=== PATIENT | female | born 1975 | race Caucasian/White ===

== ENCOUNTER 2022-08-02 10:03 | Emergency (ER) | payer MEDICAID ==
[~2022-08-02] VITALS: Ht 154.9 cm; Wt 59.1 kg
[~2022-08-02 10:03] MED LIST: ABILIFY20 MG PO; DULOXETINE HCL60 MG PO; HYDROXYZINE HCL50 MG PO; NICORETTE4 M1 BUCCAL; OLANZAPINE10 MG PO; PROTONIX40 MG PO; TOPAMAX100 MG PO; TOPIRAMATE100 MG PO; TRAZODONE HCL50 MG PO
--- OUTSIDE RECORDS SUMMARY | 2022-08-02 10:06 | XMS ---
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 Care History Behavioral 10/16/2017 [facility] Suicidal / PTSD / Major depression / Auditory hallucinations / Borderline Personality Disorder Medical/Surgical 10/16/2017 [facility] Epilepsy / Migraine Substance Use/Overdose 10/16/2017 [facility] Extensive history of polysubstance abuse / Patient admits to using Methamphetamine 11/25/17 Patient had been taking Suboxone (09/2017). Unknown if this is still being RX. E.D. VISIT COUNT (12 MO.) 2 [facility] [place] [facility] [place] [facility] TOTAL 12 NOTE: Visits indicate total known visits. ED/UCC VISIT TRACKING (12 MO.) 08/02/2022 10:04 [facility] [place] TYPE: Emergency COMPLAINT: - SKIN RPOBLEM 07/18/2022 14:46 [facility] [place] TYPE: Emergency COMPLAINT: - R ELBOW PAIN/NO INJ 06/02/2022 14:56 [facility] TYPE: Emergency COMPLAINT: - Abdominal Pain DIAGNOSES: - Abdominal Pain 05/09/2022 10:43 [facility] TYPE: Emergency DIAGNOSES: - Hallucinations - Other symptoms and signs involving emotional state - POH 03/28/2022 17:45 [facility] TYPE: Emergency DIAGNOSES: - Altered Mental Status - Ingestion - Depression, unspecified - Unspecified psychosis not due to a substance or known physiological condition - Poisoning by unspecified drugs, medicaments and biological substances, intentional self-harm, initial encounter [facility] DIAGNOSES: - Feeding Tube Laceration - Dehydration - GI Problem - Other mechanical complication of other gastrointestinal prosthetic devices, implants and grafts, initial encounter 11/02/2021 10[facility] DIAGNOSES: - Suicide attempt, initial encounter - Altered Mental Status - Seizure - Unspecified convulsions - Interstitial emphysema 09[facility]29[facility]21 [facility] DIAGNOSES: - See Nurse - Altered Mental Status - Drug / Alcohol Assessment - Unspecified psychosis not due to a substance or known physiological condition 09/28/2021 05[facility] DIAGNOSES: - Altered Mental Status - Manic episode, unspecified - Disorientation, unspecified 08/16/2021 17:[facility] [place] [facility] DIAGNOSES: - Unspecified psychosis not due to a substance or known physiological condition - Transfer [facility] [place] [facility] COMPLAINT: - Transfer to PES DIAGNOSES: - Transfer to PES 08/15/2021 08:04 [facility] DIAGNOSES: - Bipolar disorder, current episode manic without psychotic features, unspecified - Homicidal ideations - other - Suicidal ideations - Suicidal - Delusional disorders INPATIENT VISIT TRACKING (12 MO.) 11/02/2021 13:47 [place] [facility] [place] TYPE: Orthopedic DIAGNOSES: - Bipolar disorder, unspecified - Encephalopathy, unspecified - Other specified injuries of pharynx and cervical esophagus, initial encounter 08/17/2021 16:15 [facility] [place] [facility] DIAGNOSES: - Unspecified psychosis not due to a substance or known physiological condition - Suicidal ideations - Major depressive disorder, recurrent, in full remission - Other chronic pain - Psychosis - Headache, unspecified 08/16/2021 17:50 [facility] [place] [facility] DIAGNOSES: - Unspecified psychosis not due to a substance or known physiological condition - Transfer to PES [email or web address]
[2022-08-02] MEDS ORDERED: ACYCLOVIR800 MG PO (11:37)
== END 2022-08-02 11:43 | disposition home or self-care (01) ==
LOC: ED 10:03
DX: A60.00 Herpesviral infection of urogenital system, unspecified (principal); Z88.8 Allergy status to other drugs, medicaments and biological substances
CPT/HCPCS: 99282